=== PATIENT | male | born 1960 | race Caucasian/White ===

== ENCOUNTER 2017-05-15 12:44 | Emergency (ER) | payer OTHER ==
[2017-05-15 13:01] VITALS: TEMP 98.7; BMI 44.1
--- NOTE | 2017-05-15 13:59 | PDOC ---
History of Present Illness <Jossue Alvarado - Last Filed: 05/15/17 15:10> - General History Source: Patient Exam Limitations: No Limitations - History of Present Illness Initial Comments: 05/15/17 15:00 The patient is a 57-year-old male CHITO with a significant past medical history of anxiety, panic attacks, and HTN, who presents to the emergency department with anxiety and panic attacks this afternoon. He reports he woke up from a nap today with a panic attack, during which he felt discombobulated with difficulty concentrating and thinking (Which is typical of his panic attacks). He states he usually goes to [facility] outpatient program program 2x per week for his anxiety. Patient reports that he used to call 911 frequently for his panic attacks. He reports that someone at [facility] told him to try calling the suicide hotline instead if he had panic attacks. Patient reports that he has used the suicide hotline service multiple times since for his panic attacks. However, when he called suicide hotline today for his panic attack, EMS and police were sent over assuming the patient had suicidal ideation (although told them specifically he did not have any thoughts of harming himself or others). However, pt denies having suicidal ideation or plan today, and states he has never had suicidal ideation, plan, or intention to harm himself or others. Pt does note some cough for the past week that has not yet resolved associated with some nasal congestion that has improved - there is no associated fevers. The patient denies chest pain, shortness of breath, headache and dizziness. The patient denies fever, chills, nausea, vomit, diarrhea and constipation. The patient denies dysuria, frequency, urgency and hematuria. Allergies: NKDA Social History: No toxic habits reported PCP: Dr. Edge Psychiatrist: Dr. Venkatesh Nance <Cynthia Harris - Last Filed: 05/15/17 15:19> - General Chief Complaint: Psychiatric Stated Complaint: ANXIETY Time Seen by Provider: 05/15/17 13:18 Past History - Past Medical History Anemia: No Asthma: No Cancer: No Cardiac Disorders: No CVA: No COPD: No CHF: No DVT: No Dementia: No Diabetes: No GI Disorders: Yes (hospitalized recently for perforated ulcer) Disorders: No HTN: No Hypercholesterolemia: No Liver Disease: No Seizures: No Thyroid Disease: No - Surgical History Abdominal Surgery: No Appendectomy: No Cardiac Surgery: No Cholecystectomy: No Lung Surgery: No Neurologic Surgery: No Orthopedic Surgery: No - Immunization History Immunization Up to Date: Yes - Suicide/Smoking/Psychosocial Hx Smoking History: Never smoked Have you smoked in the past 12 months: No Information on smoking cessation initiated: No Hx Alcohol Use: No Drug/Substance Use Hx: No Substance Use Type: None Hx Substance Use Treatment: No <Jossue Alvarado - Last Filed: 05/15/17 15:10> <StevenCynthia - Last Filed: 05/15/17 15:19> - Past Medical History Allergies/Adverse Reactions: Allergies Allergy/AdvReac Type Severity Reaction Status Date / Time No Known Allergies Allergy Verified 05/15/17 12:56 Home Medications: Ambulatory Orders Buspirone HCl [Buspar -] 10 mg PO QID 12/17/12 Clonazepam [Klonopin] 1 mg PO QID 12/17/12 Divalproex [Depakote -] 500 mg PO TID 12/17/12 Trazodone HCl 100 mg PO TID 12/17/12 Review of Systems - Review of Systems Able to Perform ROS?: Yes Comments:: 05/15/17 15:00 CONSTITUTIONAL: No reported: Fever, Chills, Diaphoresis, Generalized Weakness, Malaise, Loss of Appetite HEENT: No reported: Rhinorrhea, Nasal Congestion, Throat Pain, Throat Swelling, Difficulty Swallowing, Mouth Swelling, Ear Pain, Eye Pain, Visual Changes CARDIOVASCULAR: No reported: Chest Pain, Syncope, Palpitations, Irregular Heart Rate, Lightheadedness, Peripheral Edema RESPIRATORY: (+) cough No reported: Shortness of Breath, SOB with Exertion, Orthopnea, Wheezing, Stridor, Hemoptysis GASTROINTESTINAL: No reported: Abdominal pain, Abdominal Distension, Nausea, Vomiting, Diarrhea, Constipation, Melena, Hematochezia GENITOURINARY: No reported: Dysuria, Frequency, Urgency, Hesitancy, Flank Pain, Genital Pain MUSCULOSKELETAL: No reported: Myalgia, Arthralgia, Joint Swelling, Back pain, Neck Pain SKIN: No reported: Rash, Itching, Pallor HEMEATOLOGIC/IMMUNOLOGIC: No reported: Easy Bleeding, Easy Bruising, Lymphadenopathy, Frequent infections ENDOCRINE: No reported: Unexplained Weight Gain, Unexplained Weight Loss, Heat Intolerance , Cold Intolerance NEUROLOGIC: No reported: Headache, Focal Weakness, Paresthesias, Vertigo, Lightheadedness, Unsteady Gait, Seizure, Mental Status Changes, Incontinence PSYCHIATRIC: (+) Anxiety No reported: Depression <Cynthia Harris - Last Filed: 05/15/17 15:19> *Physical Exam - Vital Signs Last Vital Signs Temp Pulse Resp BP Pulse Ox 98.7 F 106 H 17 160/103 96 05/15/17 12:57 05/15/17 12:57 05/15/17 12:57 05/15/17 12:57 05/15/17 12:57 <JennyBrianJossue - Last Filed: 05/15/17 15:10> - Vital Signs Last Vital Signs Temp Pulse Resp BP Pulse Ox 98.7 F 106 H 17 160/103 96 05/15/17 12:57 05/15/17 12:57 05/15/17 12:57 05/15/17 12:57 05/15/17 12:57 - Physical Exam Comments: 05/15/17 15:01 GENERAL: The patient is awake, alert, and fully oriented, Nontoxic - in no acute distress.obese HEAD: Normocephalic, atraumatic. EYES: extraocular movements intact, sclera anicteric, conjunctiva clear. ENT: Normal voice, Moist mucous membranes. NECK: Normal range of motion, No JVD LUNGS: Breath sounds equal, clear to auscultation bilaterally. No wheezes, no rhonchi, no rales. HEART: Regular rate and rhythm, normal S1 and S2 without murmur, rub or gallop. ABDOMEN: Soft, nontender, normoactive bowel sounds. No guarding, no rebound. No masses. No CVA tenderness EXTREMITIES: Normal range of motion, no edema. No clubbing or cyanosis. No cords , erythema, or tenderness. NEUROLOGICAL: No facial asymmetry, Normal speech, normal gait. PSYCH: Normal mood, normal affect. denies SI/HI SKIN: Warm, Dry, normal turgor. <Cynthia Harris - Last Filed: 05/15/17 15:19> ED Treatment Course - RADIOLOGY Radiograph Interpretation: 05/15/17 15:17 CXR PORTABLE IMPRESSION: Unremarkable examination without evidence of acute cardiopulmonary disease. Reported by: Dr. Abdo - Consult/PCP Time Called: 14:15 (Paged [facility]) - Additional Consults Time Called: 14:45 (Second page to [facility]) Consult/PCP: Page returned by Dr. Edge <Cynthia Harris - Last Filed: 05/15/17 15:19> Medical Decision Making - Medical Decision Making 05/15/17 13:52 57y M hx of anxiety, panic attacks presents with complaint of not wanting to be here. The pt states that he frequently wakes up having a panic attach - today was no different, (feeling disoriented, anxious), he was told to call the suicide hotline to talk to them (recommended by his day program) rather than calling EMS. He has been doing this for a while without incident - today, he called and was talking to the call center employee about his typical complaint ( no SI/HI, and he replied no SI/HI) - but for some reason EMS was called - and he states he was brought here essentially against his will - and denies any HI/ SI - and even signed a waveer with the [facility], but EMS still wanted to bring him to the ED for evaluation. Pt is lucid and denies any complaints besides a mild cough/congestion he has had for the past week. Pt denies any hx of SI/HI ever, and denies any currently. 05/15/17 15:[address] edge - states he does have a hitsory panic attacks but has never been SI I suspect this is a gross misunderstanding. I do not think the patient is a danger to his self or tohers. cxr negative I discussed the physical exam findings, ancillary test results and final diagnoses with the patient. I answered all of the patient's questions. The patient was satisfied with the care received and felt comfortable with the discharge plan and treatment plan. The patient will call their primary care physician within 24 hours to arrange follow-up and will return to the Emergency Department with any new, persistent or worsening symptoms. A portion of this note was documented by scribe services under my direction. I have reviewed the details of the note, within reason, and agree with the documentation with the following case summary and management plan written by me <Jossue Alvarado - Last Filed: 05/15/17 15:10> *DC/Admit/Observation/Transfer - Discharge Dispostion Admit: No <Jossue Alvarado - Last Filed: 05/15/17 15:10> - Attestations Scribe Attestion: 05/15/17 15:01 Documentation prepared by Cynthia Harris, acting as medical claims analyst for Jossue Alvarado MD, /DO. <Cynthia Harris - Last Filed: 05/15/17 15:19> Diagnosis at time of Disposition: Anxiety Upper respiratory infection Qualifiers: URI type: unspecified URI Qualified Code(s): J06.9 - Acute upper respiratory infection, unspecified - Discharge Dispostion Disposition: HOME Condition at time of disposition: Improved - Referrals Referrals: Gwyn Edge MD [Primary Care Provider] - - Patient Instructions Printed Discharge Instructions: DI for Anxiety -- Adult Additional Instructions: Return to the emergency department immediately with ANY new, persistent or worsening symptoms. You MUST call and follow up with your doctor tomorrow for further evaluation of your symptoms. Results were discussed with you. Please make sure your doctor reviews the results of your emergency evaluation. If you had any xrays during your visit, it was read preliminarily by myself, a Radiologist will review it and if there are any additional findings we will call you. Print Language: [place] - Post Discharge Activity
[2017-05-15 16:29] VITALS: BP 116/84; PULSE 94
== END 2017-05-15 16:00 | disposition home or self-care (01) ==
LOC: JER 12:44
DX: F41.0 Panic disorder [episodic paroxysmal anxiety] (principal); F41.8 Other specified anxiety disorders; J06.9 Acute upper respiratory infection, unspecified
CPT/HCPCS: 71046-TC; 99282-25